=== PATIENT | female | born 1980 | race American Indian/Alaskan Native ===

== ENCOUNTER 2017-09-29 12:48 | Emergency (ER) | payer SELFPAY ==
[2017-09-29 12:58] VITALS: BP 121/84
[2017-09-29 13:40] LABS: HCG Qualitative,Urine Negative (Negative)
[2017-09-29] MEDS ORDERED: MOTRIN PO ONE (13:48)
--- NOTE | 2017-09-29 13:48 | Emergency Department Report ---
ED Extremity Problem HPI - General Chief complaint: Extremity Injury, Upper Stated complaint: CANT MOVE RIGHT HAND Time Seen by Provider: 09/29/17 13:41 Source: patient Mode of arrival: Ambulatory Limitations: No Limitations - History of Present Illness Initial comments: Ms. Diaz is a healthy 37-year-old female presents with a right hand and right wrist pain. No injury. He feels achy stiff. 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 On previous job, she did a lot of typing. She denies injury. No fever. She sees little lump on her right wrist which is causing her concern. MD Complaint: extremity pain -: Gradual, days(s) (2) Location: right, upper extremity History of Same: No -: Yes myalgia, Yes arthralgia Radiation: none Severity scale (0 -10): 7 Quality: burning, aching Consistency: constant Improves with: nothing Worsens with: nothing Associated Symptoms: denies: chest pain, shortness of breath, fever - Related Data Previous Rx's Medication Instructions Recorded Last Taken Type oxyCODONE /ACETAMINOPHEN [Percocet 1 tab PO Q6HR PRN #20 tablet 09/19/13 Unknown Rx 5/325] Ofloxacin 0.3% [Ocuflox] 2 drops OP Q4HR #1 bottle 09/28/15 Unknown Rx Ibuprofen 400 mg PO QID 5 Days #20 tablet 09/29/17 Unknown Rx Allergies Allergy/AdvReac Type Severity Reaction Status Date / Time No Known Allergies Allergy Verified 09/19/13 03:33 ED Review of Systems ROS: Stated complaint: CANT MOVE RIGHT HAND Other details as noted in HPI Constitutional: denies: fever, malaise Respiratory: denies: cough Cardiovascular: denies: chest pain ED Past Medical Hx - Past Medical History Previous Medical History?: No - Surgical History Past Surgical History?: No - Social History Smoking Status: Never Smoker Substance Use Type: None - Medications Home Medications: Home Medications Medication Instructions Recorded Confirmed Last Taken Type oxyCODONE /ACETAMINOPHEN [Percocet 1 tab PO Q6HR PRN #20 tablet 09/19/13 Unknown Rx 5/325] Ofloxacin 0.3% [Ocuflox] 2 drops OP Q4HR #1 bottle 09/28/15 Unknown Rx Ibuprofen 400 mg PO QID 5 Days #20 tablet 09/29/17 Unknown Rx ED Physical Exam - General Limitations: No Limitations General appearance: alert, in no apparent distress - Head Head exam: Present: atraumatic, normocephalic - Eye Eye exam: Present: normal appearance - ENT ENT exam: Present: mucous membranes moist - Neck Neck exam: Present: normal inspection, full ROM - Respiratory Respiratory exam: Absent: respiratory distress - Expanded Upper Extremity Exam Right General: Present: normal inspection Shoulder Exam: Present: normal inspection Forearm Wrist exam: Present: full ROM, swelling (1 cm cyst at the volar right distal radial region). Absent: tenderness, abrasion, laceration, ecchymosis, deformity, crepidus, dislocation, tenderness over anatomical snuff box Hand Wrist exam: Present: full ROM. Absent: tenderness, swelling, abrasion, laceration, ecchymosis, deformity, crepidus, dislocation, erythema, amputation, nail avulsion, subungual hematoma Neuro motor exam: Present: wrist extension intact, thumb opposition intact Neurosensory exam: Present: 2-point discrimination, radial nerve intact, ulnar nerve intact, median nerve intact Vascular: Present: normal capillary refill ED Course Vital Signs 09/29/17 12:55 Temperature 97.8 F Pulse Rate 77 Respiratory 18 Rate Blood Pressure 121/84 O2 Sat by Pulse 100 Oximetry ED Medical Decision Making - Medical Decision Making Right hand distal wrist pain, suspect carpal tunnel. Mauri wrap placed in the ED. High-dose ibuprofen prescribed. Critical care attestation.: If time is entered above; I have spent that time in minutes in the direct care of this critically ill patient, excluding procedure time. ED Disposition Clinical Impression: Carpal tunnel syndrome of right wrist Disposition: DC-01 TO HOME OR SELFCARE Is pt being admited?: No Does the pt Need Aspirin: No Condition: Stable Instructions: Carpal Tunnel Syndrome (ED) Prescriptions: Ibuprofen 400 mg PO QID 5 Days #20 tablet Forms: Work/School Release Form(ED)
== END 2017-09-29 14:17 | disposition home or self-care (01) ==
LOC: ED 12:48
DX: G56.01 Carpal tunnel syndrome, right upper limb (principal)
CPT/HCPCS: 81025; 99283

== ENCOUNTER 2018-11-20 14:35 | Emergency (ER) | payer SELFPAY ==
[2018-11-20 15:28] VITALS: BP 128/84
--- NOTE | 2018-11-20 15:29 | Event Note ---
ED Screening Note Date of service: 11/20/18 Time: 15:27 ED Screening Note: 38 female for cp times couple day with nausea and fatigue. No SOB. PMH None, meds NKDA. Pain6/10 that is intermittent. This initial assessment/diagnostic orders/clinical plan/treatment(s) is/are subject to change based on patients health status, clinical progression and re- assessment by fellow clinical providers in the ED. Further treatment and workup at subsequent clinical providers discretion. Patient/guardian urged not to elope from the ED as their condition may be serious if not clinically assessed and managed. Initial orders include:
--- NOTE | 2018-11-20 15:53 | Emergency Department Report ---
ED Chest Pain HPI - General Chief Complaint: Chest Pain Stated Complaint: CHEST PAIN/NAUSEA/FATIGUE Time Seen by Provider: 11/20/18 15:27 Source: patient Mode of arrival: Ambulatory Limitations: No Limitations - History of Present Illness Initial Comments: Miss Diaz is a 38-year-old female with past medical history significant for kidney stones who presents with several days of lightening shooting chest pain. The chest pain lasts for seconds. It occurs intermittently. Sometimes at rest. Sometimes with exertion. She's had fatigue. She started a new job 3 months ago. She works as a cook. 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 She gets about 4 hours of sleep. She has drank red bull energy drinks in order to tolerate the new schedule. She denies leg pain. She denies shortness of breath. No recent travel. She has nausea. MD Complaint: chest pain -: Gradual, days(s) (several days) Onset: during rest, during exertion Pain Location: substernal Severity: moderate Severity scale (0 -10): 6 Quality: sharp Consistency: intermittent, now resolved Improves With: nothing Worsens With: nothing re: nausea - Related Data Previous Rx's Medication Instructions Recorded Last Taken Type oxyCODONE /ACETAMINOPHEN [Percocet 1 tab PO Q6HR PRN #20 tablet 09/19/13 Unknown Rx 5/325] Ofloxacin 0.3% [Ocuflox 0.3% opth] 2 drops OP Q4HR #1 bottle 09/28/15 Unknown Rx Ibuprofen 400 mg PO QID 5 Days #20 tablet 09/29/17 Unknown Rx Allergies Allergy/AdvReac Type Severity Reaction Status Date / Time No Known Allergies Allergy Verified 09/19/13 03:33 Heart Score - HEART Score History: Slightly suspicious EKG: Normal Age: < 45 Risk factors: No known risk factors Troponin: < normal limit HEART Score: 0 ED Review of Systems ROS: Stated complaint: CHEST PAIN/NAUSEA/FATIGUE Other details as noted in HPI Comment: All other systems reviewed and negative Constitutional: denies: fever, malaise ENT: denies: ear pain Respiratory: denies: cough Cardiovascular: chest pain ED Past Medical Hx - Past Medical History Previous Medical History?: Yes Hx Kidney Stones: Yes - Surgical History Past Surgical History?: No - Social History Smoking Status: Current Every Day Smoker Substance Use Type: Marijuana - Medications Home Medications: Home Medications Medication Instructions Recorded Confirmed Last Taken Type oxyCODONE /ACETAMINOPHEN [Percocet 1 tab PO Q6HR PRN #20 tablet 09/19/13 Un known Rx 5/325] Ofloxacin 0.3% [Ocuflox 0.3% opth] 2 drops OP Q4HR #1 bottle 09/28/15 Unknown Rx Ibuprofen 400 mg PO QID 5 Days #20 tablet 09/29/17 Unknown Rx ED Physical Exam - General Limitations: No Limitations General appearance: alert, in no apparent distress - Head Head exam: Present: atraumatic, normocephalic - Eye Eye exam: Present: normal appearance - ENT ENT exam: Present: mucous membranes moist - Neck Neck exam: Present: normal inspection, full ROM - Respiratory Respiratory exam: Present: normal lung sounds bilaterally. Absent: respiratory distress, wheezes, rales, rhonchi - Cardiovascular Cardiovascular Exam: Present: regular rate, normal rhythm, normal heart sounds. Absent: systolic murmur, diastolic murmur, rubs, gallop - GI/Abdominal GI/Abdominal exam: Present: soft, normal bowel sounds. Absent: distended, tenderness, guarding, rebound - Extremities Exam Extremities exam: Present: normal inspection - Back Exam Back exam: Present: normal inspection - Neurological Exam Neurological exam: Present: alert, oriented X3 - Psychiatric Psychiatric exam: Present: normal affect, normal mood - Skin Skin exam: Present: warm, dry, intact, normal color. Absent: rash ED Course Vital Signs 11/20/18 15:27 Temperature 98.0 F Pulse Rate 72 Respiratory 16 Rate Blood Pressure 128/84 O2 Sat by Pulse 99 Oximetry ED Medical Decision Making - Lab Data Result diagrams: 11/20/18 15:33 11/20/18 15:33 - EKG Data EKG shows normal: sinus rhythm, axis, intervals, QRS complexes, ST-T waves Rate: normal - Medical Decision Making Mrs. Diaz presents with atypical chest pain. I do not suspect ACS. She has perk negative for pulmonary embolism. Chest x-ray negative for infiltrate or p neumothorax. I suspect ectopy such as PVCs. I recommended cessation of tobacco marijuana use. Also recommended cessation of red bull energy drinks. Muscle spasm in the chest also concerned. Recommended ibuprofen as needed for chest pain. I provided cardiology referral. Upon laboratory CBC chemistry within normal limits troponin negative. Chest x- ray 2 view negative for acute process. Discharged home. She understands return precautions. Critical care attestation.: If time is entered above; I have spent that time in minutes in the direct care of this critically ill patient, excluding procedure time. ED Disposition Clinical Impression: Chest pain Disposition: DC-01 TO HOME OR SELFCARE Is pt being admited?: No Does the pt Need Aspirin: No Condition: Stable Instructions: Chest Pain (ED) Referrals: INES AMEZQUITA MD [Staff Physician] - 3-5 Days Forms: Work/School Release Form(ED)
[2018-11-20 16:21] LABS: Basophils % (Auto) 0.5 % (0.0-1.8); Eosinophils # (Auto) 0.2 K/mm3 (0.0-0.4); Eosinophils % (Auto) 2.7 % (0.0-4.3); Hematocrit 32.1 % (30.3-42.9); Hemoglobin 10.1 gm/dl (10.1-14.3); Lymphocytes # (Auto) 2.1 K/mm3 (1.2-5.4); Mean Corpuscular HGB Conc 32 % (30-34); Mean Corpuscular Volume 81 fl (79-97); Monocytes # (Auto) 0.5 K/mm3 (0.0-0.8); Monocytes % (Auto) 9.1 % (0.0-7.3); Platelet Count 275 K/mm3 (140-440); Red Blood Count 3.96 M/mm3 (3.65-5.03); Red Cell Distribution Width 19.1 % (13.2-15.2)
[2018-11-20 16:30] LABS: INR 1.04 (0.87-1.13)
[2018-11-20 16:31] LABS: Partial Thromboplastin Time 37.2 Sec. (24.2-36.6)
[2018-11-20 16:50] LABS: Alanine Aminotransferase 13 units/L (7-56); Albumin 4.2 g/dL (3.9-5); BUN/Creatinine Ratio 10; Blood Urea Nitrogen 9 mg/dL (7-17); Calcium 9.5 mg/dL (8.4-10.2); Hemolysis Index 6
--- NOTE | 2018-11-20 16:52 | XRay Report ---
CHEST 2 VIEWS INDICATION / CLINICAL INFORMATION: Chest Pain. COMPARISON: None available. FINDINGS: SUPPORT DEVICES: None. HEART / MEDIASTINUM: No significant abnormality. LUNGS / PLEURA: No significant pulmonary or pleural abnormality. No pneumothorax. ADDITIONAL FINDINGS: No significant additional findings. IMPRESSION: 1. No acute findings. Signer Name: Eliel Pardo MD Signed: 11/20/2018 4:48 PM Workstation Name: [id number]
== END 2018-11-20 17:33 | disposition home or self-care (01) ==
LOC: ED 14:35
DX: R07.89 Other chest pain (principal); F17.200 Nicotine dependence, unspecified, uncomplicated; F12.10 Cannabis abuse, uncomplicated; Z87.442 Personal history of urinary calculi
CPT/HCPCS: 36415; 71046; 80053; 83690; 84484; 84703; 85025; 85610; 85730; 93005; 93010

== ENCOUNTER 2020-08-13 12:18 | Emergency (ER) | payer SELFPAY ==
--- NOTE | 2020-08-13 13:14 | XRay Report ---
CHEST 2 VIEWS INDICATION: chest pain. COMPARISON: 11/19/2018. FINDINGS: Support devices: None. Heart: Within normal limits. Lungs/Pleura: No acute air space or interstitial disease. No significant pleural effusion. IMPRESSION: No acute findings. Signer Name: Toi Nichols MD Signed: 08/13/2020 1:09 PM Workstation Name: [id number]
[2020-08-13] MEDS ORDERED: ASPIRIN 325 MG TAB PO ONE (14:59)
[2020-08-13 15:24] LABS: Basophils # (Auto) 0.1 K/mm3 (0.0-0.1); Basophils % (Auto) 0.8 % (0.0-1.8); Eosinophils # (Auto) 0.1 K/mm3 (0.0-0.4); Eosinophils % (Auto) 1.4 % (0.0-4.3); Hemoglobin 12.5 gm/dl (10.1-14.3); Lymphocytes % (Auto) 28.4 % (13.4-35.0); Mean Corpuscular HGB Conc 33 % (30-34); Mean Corpuscular Volume 85 fl (79-97); Monocytes # (Auto) 0.5 K/mm3 (0.0-0.8); Monocytes % (Auto) 7.7 % (0.0-7.3); Platelet Count 243 K/mm3 (140-440); Red Blood Count 4.48 M/mm3 (3.65-5.03); Red Cell Distribution Width 19.4 % (13.2-15.2)
[2020-08-13 15:45] LABS: Alanine Aminotransferase 11 units/L (7-56); Albumin 4.4 g/dL (3.9-5); BUN/Creatinine Ratio 11; Blood Urea Nitrogen 9 mg/dL (7-17); Hemolysis Index 8
[2020-08-13] MEDS ORDERED: ASPIRIN 325 MG TAB ONE (17:13)
--- NOTE | 2020-08-13 17:14 | Emergency Department Report ---
ED Chest Pain HPI - General Chief Complaint: Chest Pain Stated Complaint: CHEST PAIN Time Seen by Provider: 08/13/20 16:49 Source: patient Mode of arrival: Ambulatory Limitations: No Limitations - History of Present Illness Initial Comments: Patient is 40 years old female with no significant past medical history. Patient stated that she works for [employer] and she required to do a lot of lifting heavy stuff. Patient presented to the ER complaining of left sided chest pain, sharp in nature with no radiation. Patient stated that pain increases with mov ement and improved by remaining still. Patient denied any fever or chills. No shortness of breath or cough. No recent long immobilization. MD Complaint: chest pain -: days(s) (3) Onset: during rest Pain Location: left chest Pain Radiation: none Severity: moderate Severity scale (0 -10): 6 Quality: aching, sharp Consistency: intermittent Improves With: remaining still Worsens With: movement - Related Data Previous Rx's Medication Instructions Recorded Last Taken Type oxyCODONE /ACETAMINOPHEN [Percocet 1 tab PO Q6HR PRN #20 tablet 09/19/13 Unknown Rx 5/325] Ofloxacin 0.3% [Ocuflox 0.3% opth] 2 drops OP Q4HR #1 bottle 09/28/15 Unknown Rx Ibuprofen 400 mg PO QID 5 Days #20 tablet 09/29/17 Unknown Rx Allergies Allergy/AdvReac Type Severity Reaction Status Date / Time No Known Allergies Allergy Verified 09/19/13 03:33 Heart Score - HEART Score History: Slightly suspicious EKG: Normal Age: < 45 Risk factors: No known risk factors Troponin: < normal limit HEART Score: 0 - EKG Read Time Time EKG Completed: 12:26 EKG Read Time: 12:31 - Critical Actions Critical Actions: 0-3 pts:0.9-1.7%risk of adverse cardiac event.Candidate for discharge ED Review of Systems ROS: Stated complaint: CHEST PAIN Other details as noted in HPI Comment: All other systems reviewed and negative Constitutional: denies: chills, fever Respiratory: denies: cough, shortness of breath Cardiovascular: chest pain. denies: palpitations, dyspnea on exertion Gastrointestinal: denies: abdominal pain, nausea, vomiting Musculoskeletal: denies: back pain Neurological: denies: headache, weakness, numbness, paresthesias, confusion ED Past Medical Hx - Past Medical History Previous Medical History?: Yes Hx Kidney Stones: Yes - Surgical History Past Surgical History?: No - Social History Smoking Status: Current Every Day Smoker Substance Use Type: Alcohol, Marijuana - Medications Home Medications: Home Medications Medication Instructions Recorded Confirmed Last Taken Type oxyCODONE /ACETAMINOPHEN [Percocet 1 tab PO Q6HR PRN #20 tablet 09/19/13 Unknown Rx 5/325] Ofloxacin 0.3% [Ocuflox 0.3% opth] 2 drops OP Q4HR #1 bottle 09/28/15 Unknown Rx Ibuprofen 400 mg PO QID 5 Days #20 tablet 09/29/17 Unknown Rx ED Physical Exam - General Limitations: No Limitations General appearance: alert, in no apparent distress - Head Head exam: Present: atraumatic, normocephalic, normal inspection - Eye Eye exam: Present: normal appearance - ENT ENT exam: Present: normal exam, normal orophraynx, mucous membranes moist - Neck Neck exam: Present: normal inspection, full ROM. Absent: tenderness, meningismus - Respiratory Respiratory exam: Present: normal lung sounds bilaterally, chest wall tenderness - Cardiovascular Cardiovascular Exam: Present: regular rate, normal rhythm, normal heart sounds - GI/Abdominal GI/Abdominal exam: Present: soft, normal bowel sounds. Absent: distended, tenderness, guarding, rebound, rigid, organomegaly, mass, bruit, pulsatile mass, hernia - Extremities Exam Extremities exam: Present: normal inspection, full ROM, normal capillary refill. Absent: tenderness, pedal edema, joint swelling, calf tenderness - Back Exam Back exam: Present: normal inspection, full ROM. Absent: CVA tenderness (R), CVA tenderness (L) - Neurological Exam Neurological exam: Present: alert, oriented X3, CN II-XII intact - Psychiatric Psychiatric exam: Present: normal mood - Skin Skin exam: Present: warm, intact, normal color ED Course Vital Signs 08/13/20 12:34 Temperature 98.2 F Pulse Rate 92 H Respiratory 20 Rate Blood Pressure 132/81 O2 Sat by Pulse 100 Oximetry ED Medical Decision Making - Lab Data Result diagrams: 08/13/20 15:06 08/13/20 15:06 - EKG Data -: EKG Interpreted by Pa EKG shows normal: sinus rhythm Rate: normal - EKG Data Interpretation: no acute changes - Radiology Data Radiology results: report reviewed - Medical Decision Making Patient is 40 years old female with no significant past medical history. Patient stated that she works for [employer] and she required to do a lot of lifting heavy stuff. Patient presented to the ER complaining of left sided chest pain, sharp in nature with no radiation. Patient stated that pain increases with movement and improved by remaining still. Patient denied any fever or chills. No shortness of breath or cough. No recent long immobilization. EKG is unremarkable. Chest x-ray is negative for acute finding. Labs reviewed and is unremarkable including a negative troponin. Patient chest pain is reproducible. Given her history and laboratory and imaging finding this is most likely atypical chest pain secondary to costochondritis however patient strongly advised to follow-up with her primary care physician for outpatient cardiac work-up. Patient also advised to return to the ER she develop any new symptoms. Critical care attestation.: If time is entered above; I have spent that time in minutes in the direct care of this critically ill patient, excluding procedure time. ED Disposition Clinical Impression: Acute chest pain, Costochondritis, acute Disposition: DC-01 TO HOME OR SELFCARE Is pt being admited?: No Condition: Stable Instructions: Chest Pain (ED), Costochondritis, [id number], Nonspecific Chest Pain, Adult Referrals: PRIMARY CARE, [Primary Care Provider] - 3-5 Days
[2020-08-13 17:16] VITALS: BP 137/88
--- NOTE | 2020-08-18 10:52 | Electrocardiograph Report ---
[facility] Test Date: 2020-08-13 Test Time: 12:26:04 Pat Name: MARIUSZ RODRIGUEZ Department: Room: Gender: F Qa Intern: YUSRA : 1980 Requested By: KAILYN FUENTES Order Number: [id number] Reading MD: Vitor Rolle Measurements Intervals [place] Rate: 77 P: 55 SC: 155 QRS: 30 QRSD: 74 T: 34 QT: 370 QTc: 418 Interpretive Statements Sinus rhythm No previous ECG available for comparison Electronically Signed On 08-18-2020 10:51:55 EDT by Vitor Rolle
== END 2020-08-13 17:30 | disposition home or self-care (01) ==
LOC: ED 12:18
DX: M94.0 Chondrocostal junction syndrome [Tietze] (principal); F17.200 Nicotine dependence, unspecified, uncomplicated; F12.90 Cannabis use, unspecified, uncomplicated; Z72.89 Other problems related to lifestyle; Z79.899 Other long term (current) drug therapy; Z87.442 Personal history of urinary calculi
CPT/HCPCS: 36415; 71046; 80053; 83690; 84484; 84703; 85025; 93005; 99284